=== PATIENT | female | born 1945 | race Two or more races ===

== ENCOUNTER 2020-05-14 05:47 | Day surgery (SDC) | payer OTHER ==
[~2020-05-14 05:47] MED LIST: ACID REDUCER20 M1 PO; ADULT LOW DOSE81 M1 PO; ALPRAZOLAM0.5 M1 PO; COZAAR25 MG PO; GLIMEPIRIDE4 M1 PO; METFORMIN HCL500 M3 PO; SYNTHROID75 MCG PO; VERELAN240 MG PO
[2020-05-14] MEDS ORDERED: PERCOCET 5-3251 EACH PO (15:02)
== END 2020-05-14 17:00 | disposition home or self-care (01) ==
LOC: CIR.AMB 05:47
PROVIDERS: ATTEND Surgery
DX: R15.9 Full incontinence of feces (principal); Z20.822 Contact with and (suspected) exposure to COVID-19
CPT/HCPCS: 64581; C1778

== ENCOUNTER 2020-05-28 10:48 | Day surgery (SDC) | payer OTHER ==
[~2020-05-28 10:48] MED LIST changes: +PERCOCET 5-3251 EACH PO
[2020-05-28] MEDS ORDERED: PERCOCET 5-3251 EACH PO (12:24)
== END 2020-05-28 15:24 | disposition home or self-care (01) ==
LOC: CIR.AMB 10:48
PROVIDERS: ATTEND Surgery
DX: R15.9 Full incontinence of feces (principal); Z20.822 Contact with and (suspected) exposure to COVID-19
CPT/HCPCS: 64590; 95971; L8679